=== PATIENT | female | born 1990 | race Caucasian/White ===

== ENCOUNTER 2018-04-12 09:17 | Emergency (ER) | payer BC, OTHER ==
[2018-04-12] MEDS ORDERED: Sodium Chloride 0.9% 1,000 ML IV STA (10:43)
--- NOTE | 2018-04-12 10:57 | ED PDOC ---
HPI: Abdomen Time Seen by Provider: 04/12/18 10:19 Chief Complaint (Nursing): Abdominal Pain Chief Complaint (Provider): Abdominal Pain History Per: Patient History/Exam Limitations: no limitations Onset/Duration Of Symptoms: Days (1) Location Of Pain/Discomfort: LUQ, LLQ Associated Symptoms: Fever, Nausea, Loss Of Appetite. denies: Vomiting Additional Complaint(s): 27 years old female with history of hemorrhoids presents to the ED for evaluation of left sided abdominal pain and subjective fever associated with nausea onset yesterday. Patient states she was not able to eat much because of nausea. She denies vomiting. LNMP: March 23 PMD: non provided Past Medical History Reviewed: Historical Data, Nursing Documentation, Vital Signs Vital Signs: Last Vital Signs Temp 98.5 F 04/12/18 12:54 Pulse 109 H 04/12/18 12:54 Resp 19 04/12/18 12:54 BP 111/61 04/12/18 12:54 Pulse Ox 100 04/12/18 12:54 - Medical History PMH: Gastritis Denies: Chronic Kidney Disease Other PMH: Hemorrhoids - Surgical History Surgical History: Tonsillectomy (7 yrs. ago) - Family History Family History: States: Unknown Family Hx - Social History Current smoker - smoking cessation education provided: No Alcohol: Social Drugs: Denies - Immunization History Hx Tetanus Toxoid Vaccination: No Hx Influenza Vaccination: No Hx Pneumococcal Vaccination: No - Home Medications Home Medications: Ambulatory Orders Medication Instructions Recorded Sulfamethoxazole/Trimethoprim 1 tab PO Q12 #14 tab 11/28/15 [Bactrim DS 800 mg-160 mg] Acetaminophen [Tylenol 325mg tab] 650 mg PO Q6H PRN #50 tab 04/12/18 Ciprofloxacin HCl [Cipro] 250 mg PO BID #14 tab 04/12/18 - Allergies Allergies/Adverse Reactions: Allergies Allergy/AdvReac Type Severity Reaction Status Date / Time No Known Allergies Allergy Verified 11/26/15 12:18 Review of Systems ROS Statement: Except As Marked, All Systems Reviewed And Found Negative Constitutional: Positive for: Fever (subjective) Gastrointestinal: Positive for: Nausea, Abdominal Pain (Left sided). Negative for: Vomiting Physical Exam - Reviewed Nursing Documentation Reviewed: Yes Vital Signs Reviewed: Yes - Physical Exam Appears: Positive for: Non-toxic, No Acute Distress Head Exam: Positive for: ATRAUMATIC, NORMOCEPHALIC Skin: Positive for: Normal Color, Warm, Dry Gastrointestinal/Abdominal: Positive for: Tenderness (Left sided) Back: Positive for: Other (Tenderness of left flank) Extremity: Positive for: Normal ROM. Negative for: Tenderness, Swelling Neurologic/Psych: Positive for: Alert, Oriented (x3) - Laboratory Results Result Diagrams: 04/12/18 11:30 - ECG O2 Sat by Pulse Oximetry: 98 (RA) Pulse Ox Interpretation: Normal - Progress Re-evaluation Time: 13:00 Condition: Re-examined, Improved Medical Decision Making Medical Decision Making: Time: 1043 Initial Impression: paranephritis Initial Plan: --Labs --Pepcid 20 mg IVP --Toradol 30 mg IVP --NaCl 1,000 ml IV --Zofran 4 mg IVP ----- Scribe Attestation: Documented by Aurea Hollingsworth, acting as a scribe for Georgie Marques MD. Provider Scribe Attestation: All medical record entries made by the Scribe were at my direction and personally dictated by me. I have reviewed the chart and agree that the record accurately reflects my personal performance of the history, physical exam, medical decision making, and the department course for this patient. I have also personally directed, reviewed, and agree with the discharge instructions and disposition. Disposition - Clinical Impression Clinical Impression: UTI (urinary tract infection) - Patient ED Disposition Is Patient to be Admitted: No Doctor Will See Patient In The: Office Counseled Patient/Family Regarding: Diagnosis, Need For Followup, Rx Given - Disposition Disposition: Routine/Home Disposition Time: 13:39 Condition: IMPROVED Prescriptions: Acetaminophen [Tylenol 325mg tab] 650 mg PO Q6H PRN #50 tab PRN Reason: Pain, Mild (1-3) Ciprofloxacin HCl [Cipro] 250 mg PO BID #14 tab Instructions: Urinary Tract Infections in Adults Forms: [employer] (Urdu) Print Language: MAORI - POA Present On Arrival: None
[2018-04-12 11:24] LABS: SQUAMOUS EPITHIAL 11 /hpf (0-5); URINE BACTERIA RARE (<OCC); URINE BILIRUBIN NEGATIVE (NEGATIVE); URINE BLOOD MODERATE (NEGATIVE); URINE CLARITY CLOUDY (Clear); URINE COLOR YELLOW (YELLOW); URINE GLUCOSE (UA) NEG (Normal); URINE LEUKOCYTE ESTERASE LARGE Leu/uL (Negative); URINE PROTEIN 100 mg/dL (NEGATIVE); WBC CLUMPS FEW /hpf
[2018-04-12 11:55] LABS: BASO # 0.1 K/uL (0.0-0.2); BASO % 0.5 % (0.0-2.0); HEMOGLOBIN 14.2 g/dL (12.0-16.0); LYMPH # 2.7 K/uL (1.0-4.3); LYMPH % 11.2 % (20.0-40.0); MEAN CELL VOLUME 85.7 fl (81.0-99.0); MEAN CORPUSCULAR HEMOGLOBIN 29.4 pg (27.0-31.0); MEAN CORPUSCULAR HGB CONC 34.3 g/dL (33.0-37.0); MEAN PLATELET VOLUME 8.2 fl (7.2-11.7); MONO # 2.2 K/uL (0.0-0.8); NEUT # 19.3 K/uL (1.8-7.0); NEUT % 79.3 % (50.0-75.0); NRBC % 0.1 % (0.0-0.0); RBC 4.82 Mil/uL (3.80-5.20); RED CELL DISTRIBUTION WIDTH 12.9 % (11.5-14.5); WHITE BLOOD COUNT 24.3 K/uL (4.8-10.8)
[2018-04-12] MEDS ORDERED: Ciprofloxacin 400mg/200ml D5W 400 MG/200 ML BAG IVPB STA (13:11)
[2018-04-12 14:13] LABS: ALB/GLOB RATIO 1.4 (1.0-2.1); ALBUMIN 4.6 g/dL (3.5-5.0); ALT/SGPT 16 U/L (9-52); AST/SGOT 30 U/L (14-36); BLOOD UREA NITROGEN 6 mg/dl (7-17); CALCIUM 9.1 mg/dL (8.4-10.2); GFR NON-AFRICAN AMERICAN > 60
[2018-04-12 18:23] VITALS: BP 110/76; PULSE 89; RESP 17; TEMP 98; O2SAT 100
== END 2018-04-12 14:30 | disposition home or self-care (01) ==
LOC: H.ER 09:17
DX: N39.0 Urinary tract infection, site not specified (principal)
CPT/HCPCS: 80053; 81003; 81025; 85025; 87086; 87181; 96361; 96374; 96375; 99284; J0744; J1885; J2405; J7030

== ENCOUNTER 2018-09-10 00:51 | Emergency (ER) | payer BC ==
--- NOTE | 2018-09-10 02:39 | ED PDOC ---
HPI: Abdomen Time Seen by Provider: 09/10/18 02:10 Chief Complaint (Nursing): Abdominal Pain Chief Complaint (Provider): ; abdominal pain History Per: Patient History/Exam Limitations: no limitations Onset/Duration Of Symptoms: Days (1) Current Symptoms Are (Timing): Still Present Location Of Pain/Discomfort: LLQ Additional Complaint(s): 28 y/o female, approximately 16 weeks gestation presents for evaluation of lower abdominal pain x 1 day. Associated dysuria, with small amounts of blood noted in urine. Denies fever, nausea/vomiting, chest pain, shortness of breath, palpitations, vaginal bleeding/discharge. Abnormal Vaginal Bleeding: No Last Menstral Period: NA : 2 Para: 1 Miscarriage: 0 Past Medical History Reviewed: Historical Data, Nursing Documentation, Vital Signs Vital Signs: Last Vital Signs Temp 98.4 F 09/10/18 01:31 Pulse 96 H 09/10/18 01:31 Resp 17 09/10/18 01:31 BP 110/63 09/10/18 01:31 Pulse Ox 99 09/10/18 01:31 - Medical History PMH: Gastritis Denies: Chronic Kidney Disease - Surgical History Surgical History: Tonsillectomy (7 yrs. ago) - Family History Family History: States: Unknown Family Hx - Immunization History Hx Tetanus Toxoid Vaccination: No Hx Influenza Vaccination: No Hx Pneumococcal Vaccination: No - Home Medications Home Medications: Ambulatory Orders Medication Instructions Recorded Sulfamethoxazole/Trimethoprim 1 tab PO Q12 #14 tab 11/28/15 [Bactrim DS 800 mg-160 mg] Acetaminophen [Tylenol 325mg tab] 650 mg PO Q6H PRN #50 tab 04/12/18 Ciprofloxacin HCl [Cipro] 250 mg PO BID #14 tab 04/12/18 Nitrofurantoin Macrocrystals 100 mg PO BID #13 cap 09/10/18 [Macrobid] - Allergies Allergies/Adverse Reactions: Allergies Allergy/AdvReac Type Severity Reaction Status Date / Time No Known Allergies Allergy Verified 11/26/15 12:18 Review of Systems ROS Statement: Except As Marked, All Systems Reviewed And Found Negative Genitourinary Female: Positive for: Dysuria, Hematuria, Pelvic Pain Physical Exam - Reviewed Nursing Documentation Reviewed: Yes Vital Signs Reviewed: Yes - Physical Exam Appears: Positive for: Well, Non-toxic, No Acute Distress Head Exam: Positive for: ATRAUMATIC, NORMAL INSPECTION, NORMOCEPHALIC Skin: Positive for: Normal Color Eye Exam: Positive for: Normal appearance ENT: Positive for: Normal ENT Inspection Cardiovascular/Chest: Positive for: Regular Rate, Rhythm Respiratory: Positive for: Normal Breath Sounds Gastrointestinal/Abdominal: Positive for: Bowel Sounds, Soft, Tenderness (suprapubic, left lower pelvic pain) Back: Positive for: Normal Inspection. Negative for: L CVA Tenderness, R CVA Tenderness Extremity: Positive for: Normal ROM Neurologic/Psych: Positive for: Alert, Oriented (x3) - Laboratory Results Result Diagrams: 09/10/18 02:48 09/10/18 02:48 - ECG O2 Sat by Pulse Oximetry: 99 - Progress ED Course And Treament: -udip -cbc -cmp -urinalysis -ob u/s Ultrasound of the pelvis. Indication: Pelvic pain. Technique: Real-time ultrasound images were obtained. Findings: Single, live intrauterine gestation. heart rate 143 beats per minute. Estimated gestational age is 19 weeks and 6 days. Nonvisualization of the ovaries. No evidence of placenta previa. Fundal placenta. Transverse lie. Active fetus. Impression: Single, live intrauterine gestation. 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
[2018-09-10 02:52] LABS: BASO # 0.1 K/uL (0.0-0.2); BASO % 0.4 % (0.0-2.0); EOS # 0.3 K/uL (0.0-0.7); EOS % 1.7 % (0.0-4.0); HEMOGLOBIN 10.6 g/dL (12.0-16.0); LYMPH # 3.1 K/uL (1.0-4.3); LYMPH % 19.3 % (20.0-40.0); MEAN CORPUSCULAR HEMOGLOBIN 29.9 pg (27.0-31.0); MEAN CORPUSCULAR HGB CONC 33.9 g/dL (33.0-37.0); MEAN PLATELET VOLUME 7.7 fl (7.2-11.7); MONO # 1.1 K/uL (0.0-0.8); MONO % 6.8 % (0.0-10.0); NEUT # 11.4 K/uL (1.8-7.0); NEUT % 71.8 % (50.0-75.0); RBC 3.54 Mil/uL (3.80-5.20); RED CELL DISTRIBUTION WIDTH 14.3 % (11.5-14.5); WHITE BLOOD COUNT 15.9 K/uL (4.8-10.8)
[2018-09-10 03:01] LABS: SQUAMOUS EPITHIAL 2 /hpf (0-5); URINE BACTERIA OCC (<OCC); URINE BILIRUBIN NEGATIVE (NEGATIVE); URINE BLOOD MODERATE (NEGATIVE); URINE CLARITY CLOUDY (Clear); URINE COLOR YELLOW (YELLOW); URINE GLUCOSE (UA) NEG (NEGATIVE); URINE LEUKOCYTE ESTERASE NEG Leu/uL (Negative); URINE PROTEIN 30 mg/dL (NEGATIVE); URINE UROBILINOGEN 0.2-1.0 mg/dL (0.2-1.0)
[2018-09-10 03:13] LABS: ALB/GLOB RATIO 1.1 (1.0-2.1); ALBUMIN 3.5 g/dL (3.5-5.0); ALT/SGPT 25 U/L (9-52); AST/SGOT 15 U/L (14-36); BLOOD UREA NITROGEN 8 mg/dl (7-17); GFR NON-AFRICAN AMERICAN > 60
[2018-09-10 05:22] VITALS: BP 109/64; PULSE 85; RESP 16; TEMP 98.6; O2SAT 98
--- NOTE | 2018-09-10 13:30 | US ---
Date of service: 09/10/2018 PROCEDURE: Limited obstetrical ultrasound HISTORY: ; pain COMPARISON: None TECHNIQUE: Standard protocol for this study/examination. FINDINGS: Transverse presentation. Fundal placenta. No evidence of abruption or previa Gestational age derived from LMP Cannot be ascertained based in the absence of a reliable/ known LMP. Gestational age derived from the following biometric parameters 19 weeks 6 days. DON 01/29/2019 Biparietal diameter 4.75 cm Head circumference 16.89 cm Abdominal circumference 15.16 cm Femur length 2.96 cm Estimated weight 313.74 g Calculated cardiac rate 144 beats per min. Closed cervix measuring 5.72 cm IMPRESSION: Nineteen weeks 6 days live intrauterine gestation. Gestational concordance Cannot be ascertained based in the absence of a reliable/ known LMP
== END 2018-09-10 05:30 | disposition home or self-care (01) ==
LOC: H.ER 00:51
DX: O23.42 Unspecified infection of urinary tract in pregnancy, second trimester (principal); Z3A.16 16 weeks gestation of pregnancy